=== PATIENT | female | born 2000 | race Hispanic/Latino ===

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

== ENCOUNTER 2022-03-15 12:30 | Emergency (ER) | payer BC ==
--- NOTE | 2022-03-15 14:14 | RAD REPORT ---
EXAM DESCRIPTION: Alvaro Single View03/15/2022 2:02 pm CLINICAL HISTORY: sob COMPARISON: 2021 FINDINGS: The lungs appear clear of acute infiltrate. The heart is normal size IMPRESSION: No acute abnormalities displayed
[2022-03-15 14:30] LABS: Absolute Lymphocytes (CBC) 1.8 K/uL (0.7-4.9); Hematocrit 40.1 % (36.0-45.0); Lymphocytes % 16.1 % (15.3-44.8); MCV 85.9 fL (80-100); MPV 7.6 fL (7.6-11.3); RBC Red Blood Cell Count 4.67 M/uL (3.86-4.86)
[2022-03-15 14:49] LABS: Potassium 3.6 mmol/L (3.5-5.1); Thyroid Stimulating Hormone 0.942 uIU/mL (0.358-3.740)
--- NOTE | 2022-03-15 15:37 | ER ---
Nurse's Notes [facility] Name: Abelino Coleman Age: 21 yrs Sex: Female : 2000 Arrival Date: 03/15/2022 Time: 12:31 Bed 15 Private MD: Chase Mcfarlane K Diagnosis: Dyspnea Presentation: 03/15 13:09 Chief complaint: Patient states: shortness of breath x 2 months, all the time. ko1 Coronavirus screen: At this time, the client does not indicate any symptoms associated with coronavirus-19. Ebola Screen: No symptoms or risks identified at this time. Initial Sepsis Screen: Does the patient meet any 2 criteria? No. Patient's initial sepsis screen is negative. Does the patient have a suspected source of infection? No. Patient's initial sepsis screen is negative. Risk Assessment: Do you want to hurt yourself or someone else? Patient reports no desire to harm self or others. Onset of symptoms is unknown. 13:09 Method Of Arrival: Ambulatory ko1 13:09 Acuity: ALFREDITO 3 ko1 Triage Assessment: 13:12 General: Appears in no apparent distress. comfortable, Behavior is calm, cooperative, ko1 appropriate for age. Pain: Denies pain. Respiratory: Reports shortness of breath at rest on exertion Onset: The symptoms/episode began/occurred at an unknown time. the patient has moderate shortness of breath. 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 - Social history:: Smoking status: Patient denies any tobacco usage or history of. Screenin:45 [facility] ED Fall Risk Assessment (Adult) History of falling in the last 3 months, eh3 including since admission No falls in past 3 months (0 pts) Confusion or Disorientation No (0 pts) Intoxicated or Sedated No (0 pts) Impaired Gait No (0 pts) Mobility Assist Device Used No (0 pt) Altered Elimination No (0 pt) Score/Fall Risk Level 0 - 2 = Low Risk. Abuse screen: Denies threats or abuse. Denies injuries from another. Nutritional screening: No deficits noted. Tuberculosis screening: No symptoms or risk factors identified. Assessment: 13:45 General: Appears in no apparent distress. comfortable, Behavior is calm, cooperative, eh3 appropriate for age. Pain: Denies pain. Neuro: Level of Consciousness is awake, alert, obeys commands, Oriented to person, place, time, situation. Cardiovascular: Capillary refill < 3 seconds Patient's skin is warm and dry. Cardiovascular: Rhythm is irregular. Respiratory: Reports shortness of breath at rest pain with respiration since 2 months ago pain increases with eating and activity Airway is patent Respiratory effort is even, unlabored, Respiratory pattern is regular, symmetrical, Breath sounds are clear bilaterally. GI: No signs and/or symptoms were reported involving the gastrointestinal system. Abdomen is flat, non-distended. : No signs and/or symptoms were reported regarding the genitourinary system. EENT: No signs and/or symptoms were reported regarding the EENT system. Derm: No signs and/or symptoms reported regarding the dermatologic system. Skin is pink, warm \T\ dry. Musculoskeletal: No signs and/or symptoms reported regarding the musculoskeletal system. Circulation, motion, and sensation intact. Range of motion: intact in all extremities. 14:45 Reassessment: Patient appears in no apparent distress at this time. Patient and/or eh3 family updated on plan of care and expected duration. Pain level reassessed. Patient is alert, oriented x 3, equal unlabored respirations, skin warm/dry/pink. 15:45 Reassessment: Patient appears in no apparent distress at this time. Patient and/or eh3 family updated on plan of care and expected duration. Pain level reassessed. Patient is alert, oriented x 3, equal unlabored respirations, skin warm/dry/pink. Vital Signs: 13:09 BP 111 / 74; Pulse 70; Resp 16; Temp 99; Pulse Ox 100% on R/A; Weight 43.09 kg; Height ko1 4 ft. 11 in. (149.86 cm); Pain 0/10; 14:00 BP 107 / 67; Pulse 55; Resp 16; Pulse Ox 95% on R/A; eh3 15:00 BP 101 / 73; Pulse 57; Resp 18; Pulse Ox 100% on R/A; eh3 13:09 Body Mass Index 19.19 (43.09 kg, 149.86 cm) ko1 ED Course: 12:31 Patient arrived in ED. as 12:31 Chase Mcfarlane MD is Private Physician. as 12:57 Cindy Chan FNP-C is [facility]. kb 12:57 Sedrick Amaro MD is Attending Physician. kb 13:12 Triage completed. ko1 13:12 Arm band placed on right wrist. Patient placed in waiting room, Patient notified of ko1 wait time. 13:45 Patient has correct armband on for positive identification. Placed in gown. Bed in low eh3 position. Call light in reach. Side rails up X2. Adult w/ patient. Client placed on continuous cardiac and pulse oximetry monitoring. NIBP monitoring applied. Door closed. Noise minimized. 13:46 Iesha Berrios, RN is Primary Nurse. eh3 14:00 Inserted saline lock: 20 gauge in right antecubital area, using aseptic technique. eh3 Blood collected. 14:04 Chest Single View XRAY In Process Unspecified. EDMS 15:48 No provider procedures requiring assistance completed. IV discontinued, intact, eh3 bleeding controlled, No redness/swelling at site. Pressure dressing applied. Administered Medications: 16:02 Drug: Ativan (LORazepam) 0.5 mg Route: PO; eh3 16:02 Follow up: Response: Medication administered at discharge. eh3 Medication: 15:48 VIS not applicable for this client. eh3 Outcome: 15:37 Discharge ordered by . kb 16:02 Discharged to home ambulatory, with family. eh3 16:02 Condition: stable 16:02 Discharge instructions given to patient, family, Instructed on discharge instructions, follow up and referral plans. Demonstrated understanding of instructions, follow-up care. 16:02 Patient left the ED. eh3 Signatures: Dispatcher [employer] [facility] Cindy Chan FNP-C EDUCATIONAL THERAPIST-Leila Mosley as Iesha Berrios, RN RN eh3 Hoda Gilbert, DASHAWN RN ko1 Corrections: (The following items were deleted from the chart) 13:12 13:12 PMHx: seasonal allergies; ko1 ko1 15:48 15:47 Reassessment: Patient appears in no apparent distress at this time. Patient eh3 and/or family updated on plan of care and expected duration. Pain level reassessed. Patient is alert, oriented x 3, equal unlabored respirations, skin warm/dry/pink. eh3
--- NOTE | 2022-03-15 15:37 | EDPHYS ---
Physician Documentation [facility] Name: Abelino Coleman Age: 21 yrs Sex: Female : 2000 Arrival Date: 03/15/2022 Time: 12:31 Bed 15 Private MD: Chase Mcfarlane K ED Physician Sedrick Amaro HPI: 03/15 19:11 This 21 yrs old Female presents to ER via Ambulatory with complaints of kb Breathing Difficulty. 19:11 The patient has shortness of breath at rest. Onset: The symptoms/episode began/occurred kb 2 month(s) ago. Duration: The symptoms are continuous. The patient's shortness of breath has no apparent modifying factors. Associated signs and symptoms: The patient has no apparent associated signs or symptoms. Severity of symptoms: At their worst the symptoms were mild moderate in the emergency department the symptoms are unchanged. The patient has not experienced similar symptoms in the past. The patient has not recently seen a physician. Patient reports shortness of breath that started 2 to 3 months ago. States has been seeing Dr. Mcfarlane for this, has had chest x-ray that was normal, pulmonary function studies that were normal, has been started on 3 different inhalers without relief. States she has a EKG scheduled for Friday but did not want a wait any longer so she came in today. States laying down and eating makes shortness of breath worse. Denies chest pain, cough, congestion, fever. 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 - Social history:: Smoking status: Patient denies any tobacco usage or history of. ROS: 19:10 Constitutional: Negative for fever, chills, and weight loss. kb 19:10 Respiratory: Positive for shortness of breath. 19:10 All other systems are negative. Exam: 19:07 Constitutional: This is a well developed, well nourished patient who is awake, alert, kb and in no acute distress. Head/Face: Normocephalic, atraumatic. ENT: Moist Mucous membranes Cardiovascular: Regular rate and rhythm with a normal S1 and S2. No gallops, murmurs, or rubs. No pulse deficits. Respiratory: Respirations even and unlabored. No increased work of breathing. Talking in full sentences Abdomen/GI: Soft, non-tender. No distention Skin: Warm, dry with normal turgor. Normal color. MS/ Extremity: Pulses equal, no cyanosis. Neurovascular intact. Full, normal range of motion. Neuro: Awake and alert, GCS 15, oriented to person, place, time, and situation. Moves all extremities. Normal gait. 19:07 ECG was reviewed by the Attending Physician. Vital Signs: 13:09 BP 111 / 74; Pulse 70; Resp 16; Temp 99; Pulse Ox 100% on R/A; Weight 43.09 kg; Height ko1 4 ft. 11 in. (149.86 cm); Pain 0/10; 14:00 BP 107 / 67; Pulse 55; Resp 16; Pulse Ox 95% on R/A; eh3 15:00 BP 101 / 73; Pulse 57; Resp 18; Pulse Ox 100% on R/A; eh3 13:09 Body Mass Index 19.19 (43.09 kg, 149.86 cm) ko1 MDM: 12:58 Patient medically screened. kb 19:08 Differential diagnosis: Anemia asthma, Pulmonary Embolism. Data reviewed: vital signs, kb nurses notes. I considered the following discharge prescriptions or medication management in the emergency department Antibiotics: At this time antibiotics are not recommended. Independent interpretation of the following test(s) in the Emergency Department EKG: See my EKG interpretation above. Test considered but Not performed: CT: CT for PE rule out considered but D-dimer is normal, patient is not tachycardic and oxygen is 100% on room air.. Historians other than the Patient: Parent: Mother. Counseling: I had a detailed discussion with the patient and/or guardian regarding: the historical points, exam findings, and any diagnostic results supporting the discharge/admit diagnosis, lab results, radiology results, the need for outpatient follow up, a family practitioner, to return to the emergency department if symptoms worsen or persist or if there are any questions or concerns that arise at home. 03/15 13:06 Order name: CBC with Diff; Complete Time: 15:02 kb 03/15 13:06 Order name: Basic Metabolic Panel; Complete Time: 15:02 kb 03/15 13:06 Order name: TSH; Complete Time: 15:02 kb 02/03 13:06 Order name: D-Dimer; Complete Time: 15:02 kb 03/15 13:06 Order name: Chest Single View XRAY; Complete Time: 14:15 kb 03/15 13:06 Order name: EKG; Complete Time: 13:07 kb 03/15 13:06 Order name: EKG - Nurse/Tech; Complete Time: 14:39 kb 03/15 13:06 Order name: IV Start; Complete Time: 14:20 kb EC:07 Rate is 60 beats/min. Rhythm is regular. QRS [place] is Normal. [place] interval is normal at kb 122 msec. QRS interval is normal at 78 msec. QT interval is normal at 400 msec. Administered Medications: 16:02 Drug: Ativan (LORazepam) 0.5 mg Route: PO; 3 16:02 Follow up: Response: Medication administered at discharge. 3 Disposition: 03/16 07:16 Co-signature as Attending Physician, Sedrick Amaro MD I reviewed the patient's care rn provided by the Advanced Practice Provider and agree with the diagnosis and treatment plan. Disposition Summary: 03/15/22 15:37 Discharge Ordered Location: Home kb Condition: Stable kb Diagnosis - Dyspnea kb Followup: kb - With: Emergency Department - When: As needed - Reason: Worsening of condition Followup: kb - With: Private Physician - When: 2 - 3 days - Reason: Recheck today's complaints, Continuance of care, Re-evaluation by your physician Discharge Instructions: - Discharge Summary Sheet kb - Shortness of Breath, Adult, [id number] kb Forms: - Medication Reconciliation Form kb - Thank You Letter kb - Antibiotic Education kb - Prescription Opioid Use kb Signatures: Dispatcher [employer] EDMA Cindy Chan, TATTOO AND BODY ARTIST-C TATTOO AND BODY ARTIST-CkSedrick Tejada MD MD rn Hall, Erin, RN RN eh3 Hoda Gilbert RN RN ko1 Corrections: (The following items were deleted from the chart) 03/15 13:12 13:12 PMHx: seasonal allergies; ko1 ko1
[2022-03-15] MEDS ORDERED: LORAZEPAM 0.5 MG TABLET ONE (16:02)
[2022-03-15 16:13] VITALS: TEMP 99
[2022-03-15 16:24] VITALS: BP 101/73; O2SAT 100
== END 2022-03-15 16:02 | disposition home or self-care (01) ==
LOC: ER 12:30
DX: R06.00 Dyspnea, unspecified (principal)
CPT/HCPCS: 36415; 71045; 80048; 84443; 85025; 85379; 93005; 99284